=== PATIENT | female | born 2000 | race Caucasian/White ===

== ENCOUNTER 2021-06-21 12:07 | Emergency (ER) | payer OTHER ==
[2021-06-21 12:32] VITALS: BP 104/68; PULSE 81; RESP 18; TEMP 98.1
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
[2021-06-21] MEDS ORDERED: KETOROLAC 15 MG/ML 1 ML VIAL IM STA (14:03)
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
== END 2021-06-21 14:21 | disposition home or self-care (01) ==
LOC: EC 12:07
DX: R51.9 Headache, unspecified (principal); Z88.1 Allergy status to other antibiotic agents
CPT/HCPCS: 70450; 72125; 81025; 99284